=== PATIENT | female | born 2005 | race Caucasian/White ===

== ENCOUNTER 2024-05-01 09:42 | Outpatient (CLI) | payer OTHER | END 2024-05-01 09:43 | disposition home or self-care (01) | LOC: CSHMRI 09:42 | PROVIDERS: ATTEND Orthopaedic Surgery | DX: M23.91 Unspecified internal derangement of right knee (principal); S80.01XA Contusion of right knee, initial encounter; M79.89 Other specified soft tissue disorders; M22.8X1 Other disorders of patella, right knee; M25.461 Effusion, right knee ==